=== PATIENT | male | born 1945 | race Caucasian/White ===

== ENCOUNTER 2017-12-06 15:12 | Emergency (ER) | payer OTHER ==
[~2017-12-06] VITALS: Ht 181.6 cm; Wt 98.0 kg
[2017-12-06] MEDS ORDERED: HYDROCHLOROTHIA25 M1 PO (15:35)
[2017-12-06] MEDS ORDERED: SPIRIVA18 MCG INH (15:35)
[2017-12-06] MEDS ORDERED: SIMVASTATIN40 M1 PO (15:36)
[2017-12-06] MEDS ORDERED: TAMSULOSIN HCL0.4 M1 PO (15:36)
[2017-12-06] MEDS ORDERED: MULTIVITAMINS1 EAC9 PO (15:37)
[2017-12-06] MEDS ORDERED: ASPIRIN EC81 M1 PO (15:37)
[2017-12-06] MEDS ORDERED: PROAIR HFA8.5 GM INH (15:38)
[2017-12-06 15:49] LABS: ABSOLUTE BASOPHIL COUNT 0 /CUMM (0.0-0.2); ABSOLUTE EOSINOPHIL COUNT 0.2 /CUMM (0.0-0.7); ABSOLUTE GRANULOCYTE CT 6.8 /CUMM (1.4-6.5); ABSOLUTE MONOCYTE COUNT 1.1 /CUMM (0.10-0.60); BASOPHIL % 0.4 % (0.0-2.0); EOSINOPHIL % 1.6 % (0-5); GRANULOCYTE % 61.2 % (42.2-75.2); HEMATOCRIT 45.8 % (42-52); MEAN CORPUSCULAR HGB 31.1 PG (27.0-31.0); MEAN CORPUSCULAR VOLUME 91.5 FL (80.0-94.0); MEAN PLATELET VOLUME 8.4 FL (7.4-10.4); PLATELET COUNT 245 /CUMM (130-400); RBC DISTRIBUTION WIDTH 12.9 % (11.5-14.5); WHITE BLOOD CELL COUNT 11.1 /CUMM (4.8-10.8)
--- NOTE | 2017-12-06 17:19 | ED GI/GU/ABDOMINAL COMPLAINT ---
History of Present Illness General Chief Complaint: Abdominal Pain/Flank Pain Stated Complaint: ABODMINAL PAIN SINCE LAST NIGHT Source: patient, family () Exam Limitations: no limitations Allergies Coded Allergies: No Known Allergies (12/06/17) Reconcile Medications Albuterol Sulfate (Proair Hfa) 90 MCG HFA.AER.AD 2 PUF INH Q4-6 PRN PRN ASTHMA /EMPHYSEMA (Reported) Amoxicillin/Potassium Clav (Augmentin 875-125 Tablet) 875 MG-125 MG TABLET 1 TAB PO BID DIVERTICULITIS Aspirin (Ecotrin*) 81 MG TABLET.DR 1 TAB PO DAILY PVD (Reported) Hydrochlorothiazide 25 MG TABLET 1 TAB PO DAILY BP (Reported) Multiple Vitamin (Multivitamins) 1 EACH TABLET 1 TAB PO DAILY SUPPLEMENT ( Reported) Oxycodone HCl/Acetaminophen (Percocet 5-325 MG Tablet) 5 MG-325 MG TABLET 1 TAB PO 4 TIMES/DAY PRN PAIN Simvastatin (Simvastatin*) 40 MG TABLET 1 TAB PO QPM CHOLESTEROL (Reported) Tamsulosin HCl 0.4 MG CAP.ER.24H 1 CAP PO DAILY TO HELP WITH URINATION ( Reported) Tiotropium Archbold (Spiriva) 18 MCG CAP.W.DEV 1 CAP INH DAILY ASTHMA/EMPHYSEMA (Reported) Triage Note: TRIAGE: PT TO ER WITH C/C L SIDED ABD PAIN. ONSET LAST NIGHT, CONSTANT SINCE ONSET, RATES 9/10 AND DESCRIBES SHARP. -N/V/D. LNBM EITHER THIS MORNING OR LAST NIGHT. DENIES URINARY DIFFICULTIES. DEMOES ANY OTHER S/S. INITIALLY THOUGHT IT WAS GAS PAINS BUT DID NOT BELCH. Triage Nurses Notes Reviewed? yes Onset: Abrupt Duration: day(s): (1-2), constant, continues in ED, getting worse Timing: single episode today Quality/Severity: cramping Severity Numbers: 7 Location: left lower quadrant Radiation: no radiation Activities at Onset: none Prior Abdominal Problems: none Past Sexual History: Unobtainable at this time No Modifying Factors: none Modifying Factors: Worsens With: palpation. Associated Symptoms: abdominal pain HPI: 72-year-old male history of hypertension hyperlipidemia presents for evaluation of abdominal pain. Patient states symptoms started 1-2 days ago and been persistent. The pain is located in the left lower quadrant and left periumbilical area. The pain does not radiate. He rates the pain currently as an 8 out of 10. He has not taken any medicine for the pain. There is no associated nausea vomiting or diarrhea. No chest pain or shortness of breath no dizziness or lightheadedness. He's never had this pain before. No recent abdominal surgeries. He describes the pain as sharp. No urinary symptoms, hematuria, back pain, fever or any other associated symptoms. (Mert Diego) Vital Signs & Intake/Output Vital Signs & Intake/Output Vital Signs Date Time Temp Pulse Resp B/P B/P Pulse O2 O2 Flow FiO2 Mean Ox Delivery Rate 12/06 1809 97.9 55 18 126/65 94 Room Air 12/06 1734 98.0 12/06 1527 98.0 71 20 168/82 95 Room Air ED Intake and Output 12/07 0000 12/06 1200 Intake Total Output Total Balance Patient 216 lb Weight Weight Reported by Patient Measurement Method (Monico Fernandez DO) Past History Travel History Traveled to [place] past 21 day No Medical History Any Pertinent Medical History? see below for history Neurological: NONE EENT: NONE Cardiovascular: hypertension, hyperlipidemia Respiratory: asthma, emphysema Gastrointestinal: benign colon polyps Hepatic: NONE Renal: NONE Musculoskeletal: NONE Psychiatric: NONE Endocrine: NONE Blood Disorders: NONE Cancer(s): NONE SALES DEVELOPMENT CONSULTANT/Reproductive: NONE Surgical History Surgical History: non-contributory Psychosocial History What is your primary language Trinidadian Tobacco Use: Quit >30 days ago ETOH Use: occasional use Illicit Drug Use: denies illicit drug use Family History Hx Contributory? No (Mert Diego) Review of Systems Review of Systems Constitutional: Reports: no symptoms. EENTM: Reports: no symptoms. Respiratory: Reports: no symptoms. Cardiovascular: Reports: no symptoms. GI: Reports: see HPI, abdominal pain. Genitourinary: Reports: no symptoms. Musculoskeletal: Reports: no symptoms. Skin: Reports: no symptoms. Neurological/Psychological: Reports: no symptoms. Hematologic/Endocrine: Reports: no symptoms. Immunologic/Allergic: Reports: no symptoms. All Other Systems: Reviewed and Negative (Mert Diego) Physical Exam Physical Exam General Appearance: well developed/nourished, no apparent distress, alert, awake Head: atraumatic, normal appearance Eyes: Bilateral: normal appearance, PERRL, EOMI, normal inspection. Ears, Nose, Throat, Mouth: moist mucous membrane Neck: normal inspection, supple, full range of motion Respiratory: normal breath sounds, chest non-tender, no respiratory distress, lungs clear Cardiovascular: regular rate/rhythm, normal peripheral pulses Peripheral Pulses: 2+ radial (R), 2+ radial (L) Gastrointestinal: normal bowel sounds, soft, no organomegaly, tenderness (llq, left periumbilical) Back: normal inspection, normal range of motion, no cvat Extremities: normal range of motion Neurologic/Psych: no motor/sensory deficits, awake, alert, oriented x 3, normal gait, normal mood/affect Skin: intact, normal color, warm/dry Core Measures ACS in differential dx? No Sepsis Present: No Sepsis Focused Exam Completed? No (Seamus BROWN,Mert) Progress Differential Diagnosis: AAA, AMI, appendicitis, bowel obstruction, colon cancer, diverticulitis, gastritis, ischemic bowel, inflamm bowel dis, pancreatitis, peptic ulcer, PUD/GERD, perforated viscous, pyelonephritis, SBO, ureterolithiasis, UTI/pyelo Diagnostic Imaging: Viewed by Me: CT Scan. Discussed w/RAD: CT Scan. Radiology Impression: PATIENT: SHAKIR ALMANZAR PRESENT AGE: 72 PATIENT ACCOUNT NO: [id number] : 44 LOCATION: [facility] ORDERING PHYSICIAN: Kip BROWN SERVICE DATE: 12/06/17 EXAM TYPE: CAT - CT ABD & PELVIS W/O IV CONTRAS EXAMINATION: CT ABDOMEN AND PELVIS WITHOUT CONTRAST CLINICAL INFORMATION: Left flank pain COMPARISON: None TECHNIQUE: Multidetector volumetric imaging was performed from the superior aspect of the liver through the pubic symphysis. Sagittal and coronal reformatted images were obtained on the technologist's workstation. DLP: 501 mGy-cm FINDINGS: LUNG BASES : The visualized lung bases are unremarkable. LIVER, GALLBLADDER, AND BILIARY TREE: The liver is normal in size, shape, and attenuation. No focal hepatic lesion or biliary ductal dilatation is present. The gallbladder is unremarkable with no evidence of radiopaque gallstones, gallbladder wall thickening, or obvious pericholecystic inflammatory changes. PANCREAS: Unremarkable. SPLEEN: Unremarkable. ADRENAL GLANDS: Unremarkable. KIDNEYS AND URETERS: There is a 2 cm cyst in the upper pole of the left kidney. There are no stones. There is no hydronephrosis. The ureters are normal. BLADDER: Unremarkable. GASTROINTESTINAL TRACT: Large bowel: Scattered diverticula throughout the descending colon and sigmoid colon. There is a focal area of fatty stranding in the pericolonic fat along the anterolateral aspect of the mid descending colon over near measuring approximately 3 cm in length. This could reflect a small area of diverticulitis or epiploic appendagitis Appendix not clearly visualized however no inflammatory changes in the right lower quadrant. Small bowel normal. Stomach normal. ABDOMINAL WALL: No significant hernia is appreciated. LYMPH NODES: Normal. VASCULAR: There is prominent arterial calcification throughout PELVIC VISCERA: Unremarkable. OSSEOUS STRUCTURES: There is moderate multilevel spondylosis of the lumbar sacral spine IMPRESSION: Focal inflammatory change along the mid distal colon likely reflects a small area of diverticulitis or epiploic appendagitis No urinary tract stones Simple cyst left kidney. Calcific atherosclerotic disease Moderate spondylosis of lumbar sacral spine DICTATED BY: Israel Mcconnell MD DATE/TIME DICTATED:12/06/171742 TOOL REPAIRER BENCH: ARHTUR DATE/TIME TRANSCRIBED:12/06/171742 CONFIDENTIAL, DO NOT COPY WITHOUT APPROPRIATE AUTHORIZATION. <Electronically signed in Other Vendor System> SIGNED BY: Israel Mcconnell MD 12/06/17 1755 Initial ED EKG: normal sinus rhythm, diffuse borderline T-wave inversions Repeat EKG: unchanged (Seamus BROWN,Mert) Plan of Care: Orders Procedure Date/time Status TROPONIN LEVEL 12/06 190 Complete EKG 12/06 1902 Active TROPONIN LEVEL 12/06 1541 Complete COMPREHENSIVE METABOLIC PANEL 12/06 1541 Complete CBC WITHOUT DIFFERENTIAL 12/06 1541 Complete EKG 12/06 1514 Active Laboratory Tests 12/06/17 1927: Troponin I < 0.01 12/06/17 1541: Urine Color Cancelled, Urine Clarity Cancelled, Urine pH Cancelled, Ur Specific Harvey Cancelled, Urine Protein Cancelled, Urine Ketones Cancelled, Urine Nitrite Cancelled, Urine Bilirubin Cancelled, Urine Urobilinogen Cancelled, Ur Leukocyte Esterase Cancelled, Ur Microscopic Cancelled, Urine Hemoglobin Cancelled, Urine Glucose Cancelled 12/06/17 1540: Anion Gap 12, Estimated GFR > 60, BUN/Creatinine Ratio 17.8, Glucose 89, Calcium 9.7, Total Bilirubin 0.7, AST 26, ALT 31, Alkaline Phosphatase 87, Troponin I < 0.01, Total Protein 7.5, Albumin 4.1, Globulin 3.4, Albumin/Globulin Ratio 1.2, CBC w Diff NO MAN DIFF REQ, RBC 5.00, MCV 91.5, MCH 31.1 H, MCHC 34.0, RDW 12.9 , MPV 8.4, Gran % 61.2, Lymphocytes % 27.0, Monocytes % 9.8 H, Eosinophils % 1.6, Basophils % 0.4, Absolute Granulocytes 6.8 H, Absolute Lymphocytes 3.0, Absolute Monocytes 1.1 H, Absolute Eosinophils 0.2, Absolute Basophils 0 Patient seen and evaluated. He is here with left lower quadrant abdominal pain that started 1-2 days ago and been persistent. He is never had this before. There are no other associated symptoms no chest pain or shortness of breath. On exam vital signs are stable. Labs EKG CT scan ordered patient initially medicated with morphine. Blood work shows a mildly elevated white blood cell count of 11,000 and potassium of 3.4. Otherwise labs are within normal limits. Initial EKG does appear to be grossly abnormal with diffuse T-wave inversions/abnormalities. Patient has not had an EKG recently. Does not appear to hear. He denies any chest pain or shortness of breath he has no severe cardiac history. CT scan showed evidence of a mild diverticulitis versus epiploic appendagitis. Reviewed results with patient. Patient will be treated for possible diverticulitis. He was given a dose of Unasyn here and no be discharged on Augmentin. Advised him of the importance of close follow-up with gastroenterology. Due to patient's abnormal EKG a repeat EKG and troponin was obtained and appears to be unchanged and negative. Patient was medicated with IV Tylenol and moprhine on reevaluation is feeling better. He's been able tolerate fluids without difficulty. Denies any bright red blood per rectum or melena. Patient will be discharged with Augmentin and Percocet. Discussed with patient about dietary changes. Advised follow-up with gastroenterology as soon as possible. Patient has a GI doctor already through the [facility]. Also follow-up with primary care doctor regarding EKG. Discussed return precautions in detail. Case discussed with Dr. Fernandez he agrees. Patient agrees the plan. (Seamus BROWN,Mert) (Monico Fernandez DO) Departure Departure Disposition: HOME OR SELF CARE Condition: Stable Clinical Impression Primary Impression: Diverticulitis Referrals: Des PAREKH,Deshaun Biggs (PCP/Family) Additional Instructions: Take antibiotics as directed for the full course. Tylenol for pain Percocet for severe pain only. Follow-up with your credit adjuster monitor symptoms return with any concerns. Departure Forms: Customer Survey General Discharge Information Prescriptions: Current Visit Scripts Amoxicillin/Potassium Clav (Augmentin 875-125 Tablet) 1 TAB PO BID #28 TAB Oxycodone HCl/Acetaminophen (Percocet 5-325 MG Tablet) 1 TAB PO 4 TIMES/DAY PRN PAIN #10 TAB (Mert Diego) PA/[employer]LE [employer] P[employer]CHER Co-Sign Statement Statement: ED Attending supervision documentation- [x] I saw and evaluated the patient. I have also reviewed all the pertinent lab results and diagnostic results. I agree with the findings and the plan of care as documented in the PA's/BUCKLE STRAP PUNCHER's documentation. [] I have reviewed the ED Record and agree with the PA's/BUCKLE STRAP PUNCHER's documentation. [] Additions or exceptions (if any) to the PAs/BUCKLE STRAP PUNCHER's note and plan are summarized below: [] (Monico Fernandez DO)
--- NOTE | 2017-12-06 17:55 | CT SCAN REPORT ---
EXAMINATION: CT ABDOMEN AND PELVIS WITHOUT CONTRAST CLINICAL INFORMATION: Left flank pain COMPARISON: None TECHNIQUE: Multidetector volumetric imaging was performed from the superior aspect of the liver through the pubic symphysis. Sagittal and coronal reformatted images were obtained on the technologist's workstation. DLP: 501 mGy-cm FINDINGS: LUNG BASES: The visualized lung bases are unremarkable. LIVER, GALLBLADDER, AND BILIARY TREE: The liver is normal in size, shape, and attenuation. No focal hepatic lesion or biliary ductal dilatation is present. The gallbladder is unremarkable with no evidence of radiopaque gallstones, gallbladder wall thickening, or obvious pericholecystic inflammatory changes. PANCREAS: Unremarkable. SPLEEN: Unremarkable. ADRENAL GLANDS: Unremarkable. KIDNEYS AND URETERS: There is a 2 cm cyst in the upper pole of the left kidney. There are no stones. There is no hydronephrosis. The ureters are normal. BLADDER: Unremarkable. GASTROINTESTINAL TRACT: Large bowel: Scattered diverticula throughout the descending colon and sigmoid colon. There is a focal area of fatty stranding in the pericolonic fat along the anterolateral aspect of the mid descending colon over near measuring approximately 3 cm in length. This could reflect a small area of diverticulitis or epiploic appendagitis Appendix not clearly visualized however no inflammatory changes in the right lower quadrant. Small bowel normal. Stomach normal. ABDOMINAL WALL: No significant hernia is appreciated. LYMPH NODES: Normal. VASCULAR: There is prominent arterial calcification throughout PELVIC VISCERA: Unremarkable. OSSEOUS STRUCTURES: There is moderate multilevel spondylosis of the lumbar sacral spine IMPRESSION: Focal inflammatory change along the mid distal colon likely reflects a small area of diverticulitis or epiploic appendagitis No urinary tract stones Simple cyst left kidney. Calcific atherosclerotic disease Moderate spondylosis of lumbar sacral spine
[2017-12-06] MEDS ORDERED: AUGMENTIN 875-1 EACH PO (20:38)
[2017-12-06] MEDS ORDERED: PERCOCET 5-3251 EACH PO (20:38)
== END 2017-12-06 20:42 ==
LOC: ERH 15:12
PROVIDERS: Physician Assistant
DX: K57.92 Diverticulitis of intestine, part unspecified, without perforation or abscess without bleeding (principal); R10.32 Left lower quadrant pain
CPT/HCPCS: 74176; 93005; 93010; 96374; 96375; J0131; J7040